=== PATIENT | female | born 1960 | race Two or more races ===

== ENCOUNTER 2019-12-05 13:39 | Inpatient (IN) | payer MEDICAID ==
[~2019-12-05] VITALS: Ht 160 cm; Wt 89.9 kg
[~2019-12-05 13:39] MED LIST: CLOP75TA41 PO; LAMO200T34 PO; TRAZ150T79 PO
[2019-12-05] MEDS ORDERED: methylPREDNISolone SOD SUCC 125 MG/2 ML VL IV ONE (14:00)
[2019-12-05] MEDS ORDERED: SODIUM CHLORIDE 0.9% 500 ML IV ONE (14:15)
[2019-12-05 14:37] LABS: Basophils # (auto) 0 10 ^3/uL (0-0.2); Basophils % (auto) 0.5 % (0.0-2.0); Eosinophils # (auto) 0.3 10 ^3/uL (0-0.8); Eosinophils % (auto) 3.5 % (0.0-7.0); Hemoglobin 14.3 g/dL (12.2-16.2); Lymphocytes # (auto) 2.7 10 ^3/uL (0.4-5.4); Lymphocytes % (auto) 31.8 % (10.0-50.0); Mean Corpuscular Hemoglobin 32.5 pg (28.0-32.0); Mean Corpuscular Volume 95.7 fL (80.0-100.0); Monocytes # (auto) 0.6 10 ^3/uL (0-1.3); Monocytes % (auto) 7.1 % (0.0-12.0); Neutrophils # (auto) 4.8 10 ^3/uL (1.6-8.6); Neutrophils % (auto) 57.1 % (37.0-80.0); Nucleated Red Blood Cells % 0.1 %; Platelet Count (auto) 278 10^3/uL (140-450); Red Blood Cells 4.39 10^6/uL (4.0-5.20); Red Cell Distribution Width 13.3 % (11.8-14.3); White Blood Cell 8.4 10^3/uL (4.4-10.8)
[2019-12-05 14:46] LABS: Albumin 3.4 g/dL (3.4-5.0); Anion Gap 8 (5-15); Blood Urea Nitrogen 11 mg/dL (7-18); Calcium 8.6 mg/dL (8.5-10.1); Carbon Dioxide 28 mmol/L (21-32); Chloride 97 mmol/L (98-107); Glucose 204 mg/dL (74-106); Magnesium 2.3 mg/dL (1.6-2.6); Potassium 3.9 mmol/L (3.5-5.1); Sodium 133 mmol/L (136-145)
[2019-12-05 14:54] LABS: Alanine Aminotransferase 30 U/L (13-56); Alkaline Phosphatase 86 U/L (45-117); Aspartate Aminotransferase 29 U/L (15-37); BUN/Creatinine Ratio 17.2; Bilirubin, Total 0.1 mg/dL (0.2-1.0); CRP High Sensitivity 1.41 mg/dL (< 0.3); GFR African American 122 mL/min; GFR Non-African American 101 mL/min; Total Protein 7.6 g/dL (6.4-8.2)
[2019-12-05 15:38] VITALS: BP 155/96
[2019-12-05] MEDS ORDERED: ACETAMINOPHEN 500 MG TAB PO PRN (17:45)
[2019-12-05] MEDS ORDERED: MORPHINE SULF INJ 2 MG/ML SYRINGE 1ML IV PRN (17:45)
[2019-12-05] MEDS ORDERED: NITROGLYCERIN 0.4 MG SL TAB SL PRN (17:45)
[2019-12-05] MEDS ORDERED: AZITHROMYCIN 500MG/ 250ML 250 ML IV ONE (18:00)
[2019-12-05] MEDS ORDERED: cefTRIAXone 1GM/50ML D5W 50 ML IV ONE (18:00)
[2019-12-05] MEDS: ASCORBIC ACID 1,000 MG TAB PO SCH (18:29)
[2019-12-05] MEDS: ZINC SULFATE 220mg CAP or TAB PO SCH (18:29)
[2019-12-05] MEDS: CHOLECALCIFEROL (VITD3) 1,000IU=25mCg TAB PO SCH (18:29)
[2019-12-05] MEDS ORDERED: DEXTROSE (50%) 50ML SYRG IV PRN (18:45)
--- NOTE | 2019-12-05 18:48 | NUR ---
Called Hospitalist to obtain diet order. Received cardiac diet order from DANY Aden. Per DANY Aden place patient on mild sliding scale to monitor glucose levels. Orders read back and verified, will carry out new orders.
--- NOTE | 2019-12-05 18:59 | NUR ---
Telemetry admit from ER STACEY CAVANAUGH admitted to Telemetry unit after SBAR received. Patient oriented to KATE RODRIGUEZ RN primary RN, unit, room, bed, and unit policies regarding patient care and visiting hours. Patient now on continuous telemetry monitoring, tele box # 4 and telemetry reading on arrival to unit is ST. Patient placed on bedside oxygen. All questions and concerns addressed, patient verbalized understanding. Report given to night PAYAL Macias.
[2019-12-05 19:10] VITALS: BP 145/97
--- NOTE | 2019-12-05 19:20 | NUR ---
Opening Shift Note Assumed care of patient, awake, alert and oriented x4, even and unlabored respirations on 2L oxygen via NC, no S/S of distress/SOB or pain. Patient able to ambulate and turn in bed independently, bed in lowest locked position, side rails up x2, call light within reach. Instructed on POC and to call for assist PRN, will continue to monitor for changes Q1hr and PRN.
[2019-12-05] MEDS ORDERED: ALBUTEROL SULF HFA 90MCG INH 200DOSE IN SCH (22:00)
[2019-12-05] MEDS ORDERED: TEMAZEPAM 15 MG CAP PO ONE (22:45)
[2019-12-05] MEDS: ACCU-CHEK COMFORT CURVE STRIP VI SCH (22:53)
[2019-12-05] MEDS: ALBUTEROL SULF HFA 90MCG INH 200DOSE IN SCH (22:53)
--- NOTE | 2019-12-05 22:53 | NUR ---
RT NOTE: MDI ADMINISTERED BY RN.
[2019-12-05] MEDS: InsuLIN REG 1unit/0.01ml Soln (100units/ml) SC SCH (22:54)
[2019-12-06] VITALS (7 sets, daily range): BP systolic 147–161; BP diastolic 85–96
[2019-12-06] MEDS ORDERED: LABETALOL HCL 5 MG/ML 4ML SYRINGE IV ONE (05:15)
[2019-12-06] MEDS: ALBUTEROL SULF HFA 90MCG INH 200DOSE IN SCH (05:54)
--- NOTE | 2019-12-06 05:54 | NUR ---
Respiratory note: MDI GIVEN BY RN , HR 91, RR 18, SPO2 96% ON 2L NC.
[2019-12-06] MEDS: InsuLIN REG 1unit/0.01ml Soln (100units/ml) SC SCH ×4 (06:36→22:06)
[2019-12-06] MEDS: ACCU-CHEK COMFORT CURVE STRIP VI SCH ×4 (06:36→22:04)
[2019-12-06 06:47] LABS: Basophils # (auto) 0.1 10 ^3/uL (0-0.2); Basophils % (auto) 0.6 % (0.0-2.0); Eosinophils # (auto) 0 10 ^3/uL (0-0.8); Eosinophils % (auto) 0.1 % (0.0-7.0); Hematocrit 42.8 % (36.0-46.0); Hemoglobin 14.3 g/dL (12.2-16.2); Lymphocytes # (auto) 3.6 10 ^3/uL (0.4-5.4); Lymphocytes % (auto) 28.7 % (10.0-50.0); Mean Corpuscular Hemoglobin 32.4 pg (28.0-32.0); Mean Corpuscular Hgb Conc. 33.4 g/dL (32.0-36.0); Monocytes # (auto) 0.9 10 ^3/uL (0-1.3); Monocytes % (auto) 7.1 % (0.0-12.0); Neutrophils # (auto) 7.9 10 ^3/uL (1.6-8.6); Neutrophils % (auto) 63.5 % (37.0-80.0); Nucleated Red Blood Cells % 0.1 %; Platelet Count (auto) 312 10^3/uL (140-450); Red Blood Cells 4.41 10^6/uL (4.0-5.20); Red Cell Distribution Width 13.8 % (11.8-14.3); White Blood Cell 12.4 10^3/uL (4.4-10.8)
[2019-12-06 07:06] LABS: Albumin 3.4 g/dL (3.4-5.0); Anion Gap 8 (5-15); Blood Urea Nitrogen 11 mg/dL (7-18); Calcium 8.8 mg/dL (8.5-10.1); Carbon Dioxide 27 mmol/L (21-32); Chloride 100 mmol/L (98-107); Potassium 4.3 mmol/L (3.5-5.1); Sodium 135 mmol/L (136-145)
[2019-12-06 07:14] LABS: Alanine Aminotransferase 34 U/L (13-56); Alkaline Phosphatase 88 U/L (45-117); Aspartate Aminotransferase 25 U/L (15-37); BUN/Creatinine Ratio 18.6; Bilirubin, Total 0.2 mg/dL (0.2-1.0); GFR African American 134 mL/min; GFR Non-African American 111 mL/min; Glucose 136 mg/dL (74-106); Total Protein 7.7 g/dL (6.4-8.2)
--- NOTE | 2019-12-06 07:30 | NUR ---
Opening Shift Note Assumed care of patient, awake and alert. No S/S of distress/SOB or pain. Instructed on POC and to call for assist PRN, will continue to monitor for changes Q1hr and PRN. Fall precautions in place per safety protocol.
--- NOTE | 2019-12-06 09:14 | NUR ---
IV insertion IV access obtained, via clean sterile technique by inserting a 20 gauge catheter at right forearm after 3 attempts. IV secured properly. No trauma to site. Patient tolerated procedure well.
[2019-12-06] MEDS: ZINC SULFATE 220mg CAP or TAB PO SCH (09:20)
[2019-12-06] MEDS: cefTRIAXone 1GM/50ML D5W 50 ML IV SCH (09:20)
[2019-12-06] MEDS: CHOLECALCIFEROL (VITD3) 1,000IU=25mCg TAB PO SCH (09:21)
[2019-12-06] MEDS: ASCORBIC ACID 1,000 MG TAB PO SCH (09:21)
[2019-12-06] MEDS: AZITHROMYCIN 250 MG TAB PO SCH (09:21)
[2019-12-06] MEDS: ENOXAPARIN SOD 40 MG/0.4 ML SYRINGE SC SCH (09:22)
[2019-12-06] MEDS ORDERED: AZITHROMYCIN 500MG/ 250ML 250 ML IV SCH (10:00)
--- NOTE | 2019-12-06 10:10 | NUR ---
Paged MD Denson regarding BP 160/88. Awaiting call back at this time. Will cont to monitor patient.
--- NOTE | 2019-12-06 10:48 | NUR ---
Paged MD Denson again regarding BP. Awaiting call back at this time. Will cont to monitor patient.
[2019-12-06] MEDS ORDERED: PRAZ1CAP48 PO (11:54)
[2019-12-06] MEDS ORDERED: QUET400T12 PO (11:54)
[2019-12-06] MEDS ORDERED: DIVA500T13 PO (11:54)
[2019-12-06] MEDS ORDERED: LEVE100012 PO (11:54)
[2019-12-06] MEDS ORDERED: METF-370 PO (11:54)
[2019-12-06] MEDS ORDERED: OXCA600T3 PO (11:54)
[2019-12-06] MEDS ORDERED: CLOP75TA41 PO (11:54)
[2019-12-06] MEDS ORDERED: LOSA25TA38 PO (11:54)
--- NOTE | 2019-12-06 12:14 | NUR ---
Third page to MD Denson regarding BP. Awaiting call back at this time. Will cont to monitor patient.
--- NOTE | 2019-12-06 12:45 | NUR ---
Patient's Covid Results are Negative. Patient will be transferred to room 223A with PAYAL Benedict. Report endorsed.
--- NOTE | 2019-12-06 13:03 | NUR ---
Patient transferred to room 223A. No distress, sob, or pain noted at time of departure.
[2019-12-06] MEDS ORDERED: hydrALAZINE HCL 20 MG/ML VL IV PRN (13:15)
--- NOTE | 2019-12-06 13:15 | NUR ---
Patient arrived to room 223A. Report received from PAYAL Dash. No distress/SOB or pain noted or reported. Patient is awake and alert sitting up in bed. Bed locked in lowest position, side rails up x2, call light within reach. Will continue to monitor q1hr and PRN.
[2019-12-06] MEDS ORDERED: ALBUTEROL SULF 2.5 MG/0.5ML(0.5%) NEB SOLN NEB PRN (13:30)
[2019-12-06] MEDS ORDERED: IPRATROPIUM BROM 0.5 MG/2.5ML INH SOL NEB PRN (13:30)
[2019-12-06] MEDS ORDERED: LOSARTAN POTASSIUM 25 MG TAB PO ONE (13:30)
[2019-12-06 18:38] LABS: Urine Bacteria FEW /hpf (None Seen); Urine Blood Negative /uL (Negative); Urine Specific Gravity 1.009 (1.001-1.035); Urine WBC None Seen /hpf (0 - 5)
--- NOTE | 2019-12-06 18:38 | NUR ---
Respiratory note: PT RECIEVED ON RA. PT IS AWAKE AND ALERT. PT SITTING UP ON BEDSIDE. NO RESP DISTRESS NOTED. SPO2 93%, HR 76, RR 20, BS DIM. PRN TX NOT INDICATED AT THIS TIME. PT AWARE TO CALL FOR PRN TX IF SOB/WHEEZING. WILL CONTINUE TO MONITOR PT T/O SHIFT.
--- NOTE | 2019-12-06 18:44 | NUR ---
PATIENT ROUNDS PATIENT SITTING UP AT THE SIDE OF BED EATING DINNER. NO S/S OF DISTRESS/SOB, NO PAIN NOTED OR REPORTED. WILL ENDORSE CARE TO BUSGIRL RN.
[2019-12-07 05:00] VITALS: BP 137/78
[2019-12-07 05:30] LABS: Basophils # (auto) 0.1 10 ^3/uL (0-0.2); Basophils % (auto) 1.2 % (0.0-2.0); Eosinophils # (auto) 0.1 10 ^3/uL (0-0.8); Eosinophils % (auto) 1.1 % (0.0-7.0); Hematocrit 41.7 % (36.0-46.0); Hemoglobin 14.3 g/dL (12.2-16.2); Lymphocytes % (auto) 36.5 % (10.0-50.0); Mean Corpuscular Hgb Conc. 34.3 g/dL (32.0-36.0); Mean Corpuscular Volume 96.2 fL (80.0-100.0); Monocytes # (auto) 0.9 10 ^3/uL (0-1.3); Neutrophils # (auto) 5.8 10 ^3/uL (1.6-8.6); Neutrophils % (auto) 53.2 % (37.0-80.0); Nucleated Red Blood Cells % 0.1 %; Platelet Count (auto) 314 10^3/uL (140-450); Red Blood Cells 4.34 10^6/uL (4.0-5.20); Red Cell Distribution Width 13.3 % (11.8-14.3); White Blood Cell 10.8 10^3/uL (4.4-10.8)
[2019-12-07] MEDS: ACCU-CHEK COMFORT CURVE STRIP VI SCH ×3 (05:48→17:00)
[2019-12-07 05:53] LABS: Calcium 8.8 mg/dL (8.5-10.1); Magnesium 2.3 mg/dL (1.6-2.6); Potassium 3.9 mmol/L (3.5-5.1)
[2019-12-07 05:58] LABS: BUN/Creatinine Ratio 25.5
--- NOTE | 2019-12-07 06:17 | NUR ---
Respiratory note: PT ASSESSED FOR PRN TX. HR 81, RR 18, POX 94% ON 2L NC, BS ARE CLR/DIM. PT NOTIFY TO HAVE RT PAGED.
[2019-12-07] MEDS: InsuLIN REG 1unit/0.01ml Soln (100units/ml) SC SCH ×3 (06:26→17:00)
--- NOTE | 2019-12-07 08:15 | NUR ---
Opening Shift Note Assumed care of patient, awake, alert, and oriented. No S/S of distress/SOB or pain. Bed in lowest/locked position, bed rails up x2, call light within reach. Instructed on POC and to call for assist PRN. Will continue to monitor for changes Q1hr and PRN.
[2019-12-07 09:00] VITALS: BP 142/77
[2019-12-07] MEDS: AZITHROMYCIN 250 MG TAB PO SCH (09:46)
[2019-12-07] MEDS: cefTRIAXone 1GM/50ML D5W 50 ML IV SCH (09:46)
[2019-12-07] MEDS: ENOXAPARIN SOD 40 MG/0.4 ML SYRINGE SC SCH (09:47)
[2019-12-07] MEDS ORDERED: LOSARTAN POTASSIUM 25 MG TAB PO SCH (10:00)
[2019-12-07] MEDS ORDERED: ASCORBIC ACID 1,000 MG TAB PO SCH (10:00)
[2019-12-07] MEDS ORDERED: AZIT500T PO (10:35)
--- NOTE | 2019-12-07 11:05 | NUR ---
MD ROUNDS DR HUGHES AT BEDSIDE DISCUSSING POC WITH PATIENT. NEW ORDERS RECEIVED/WILL CARRY OUT. WILL CONTINUE TO MONITOR
[2019-12-07 12:30] VITALS: BP 141/82
--- NOTE | 2019-12-07 17:45 | NUR ---
Discharge instructions given as ordered. Encourage to follow up with PMD as instructed. All questions and concerns addressed. Patient verbalized understanding. IV removed with catheter intact, pressure dressing applied. Telemetry unit returned to ICU. Patient taken to vehicle via wheelchair with all personal belongings, accompanied by staff and family member. No distress noted at time of departure.
== END 2019-12-07 17:30 | disposition home or self-care (01) | DRG 133 ==
LOC: ER 13:39 → UNDOADMIN 13:40 → TELE-EAST 13:40 → TELE 13:40 → TELE-CENTR 12-06 13:02
PROVIDERS: ADMIT Nurse Practitioner Acute Care; ATTEND Internal Medicine
DX: J96.00 Acute respiratory failure, unspecified whether with hypoxia or hypercapnia (principal); J45.902 Unspecified asthma with status asthmaticus; R65.10 Systemic inflammatory response syndrome (SIRS) of non-infectious origin without acute organ dysfunction; E11.65 Type 2 diabetes mellitus with hyperglycemia; J98.11 Atelectasis; E66.9 Obesity, unspecified; E78.5 Hyperlipidemia, unspecified; G40.909 Epilepsy, unspecified, not intractable, without status epilepticus; I10 Essential (primary) hypertension; I25.10 Atherosclerotic heart disease of native coronary artery without angina pectoris; J20.9 Acute bronchitis, unspecified; Z68.35 Body mass index [BMI] 35.0-35.9, adult; I25.2 Old myocardial infarction; Z79.899 Other long term (current) drug therapy; Z79.02 Long term (current) use of antithrombotics/antiplatelets; Z82.49 Family history of ischemic heart disease and other diseases of the circulatory system; Z83.3 Family history of diabetes mellitus; Z95.5 Presence of coronary angioplasty implant and graft; Z03.818 Encounter for observation for suspected exposure to other biological agents ruled out
CPT/HCPCS: 36415; 71045; 71046; 80048; 80053; 80061; 81001; 82728; 82962; 83036; 83605; 83615; 83735; 83880; 84443; 84484; 85025; 85379; 86141; 87040; 87070; 87804; 87880; 93005; 94640; 96361; 96365; 96368; 96375; G0378; J0696; J1815; J3490

== ENCOUNTER 2024-02-01 01:16 | Inpatient (IN) | payer MEDICAID ==
[~2024-02-01] VITALS: Ht 160 cm; Wt 78.8 kg
[~2024-02-01 01:16] MED LIST changes: +AZIT500T PO; -CLOP75TA41 PO; +CLOP75TA70 PO; +DIVA500T13 PO; +LEVE100012 PO; +LOSA-533 PO; +METF-370 PO; +OXCA600T3 PO; +PRAZ1CAP48 PO; +QUET400T13 PO; -TRAZ150T79 PO; +TRAZ1TAB12 PO
[2024-02-01] MEDS: LORazepam 2MG/ML-1ML VIAL IV ONE (02:10)
[2024-02-01] MEDS: levETIRAcetam 1000 mg/100ml 100 ML IV ONE (02:10)
[2024-02-01 02:32] VITALS: PULSE 66; RESP 14; O2SAT 90
[2024-02-01 03:08] LABS: Basophils # (auto) 0.1 10 ^3/uL (0-0.2); Basophils % (auto) 0.9 % (0.0-2.0); Eosinophils # (auto) 0.1 10 ^3/uL (0-0.8); Hematocrit 36.4 % (36.0-46.0); Hemoglobin 12.8 g/dL (12.2-16.2); Lymphocytes # (auto) 2.9 10 ^3/uL (0.4-5.4); Lymphocytes % (auto) 45.9 % (10.0-50.0); Mean Corpuscular Hemoglobin 32.9 pg (28.0-32.0); Monocytes # (auto) 0.4 10 ^3/uL (0-1.3); Monocytes % (auto) 6.3 % (0.0-12.0); Neutrophils # (auto) 2.9 10 ^3/uL (1.6-8.6); Neutrophils % (auto) 45.9 % (37.0-80.0); Nucleated Red Blood Cells % 0.1 %; Red Blood Cells 3.88 10^6/uL (4.0-5.20); Red Cell Distribution Width 13.1 % (11.8-14.3); White Blood Cell 6.3 10^3/uL (4.4-10.8)
[2024-02-01 03:32] LABS: Chloride 102 mmol/L (98-107); Potassium 3.1 mmol/L (3.5-5.1); Sodium 133 mmol/L (136-145)
[2024-02-01 03:33] LABS: Anion Gap 6 (5-15); Calcium 9.7 mg/dL (8.7-10.4); Carbon Dioxide 25 mmol/L (20-30)
[2024-02-01 03:38] LABS: BUN/Creatinine Ratio 15.2 (10.0-20.0); Blood Urea Nitrogen 7 mg/dL (9-23); Glucose 133 mg/dL (74-106)
[2024-02-01] MEDS: POTASSIUM CHL 20MEQ/100ML 100 ML IV ONE (05:04)
[2024-02-01] MEDS: SODIUM CHLORIDE 0.9% 1,000 ML IV ONE (05:04)
[2024-02-01 05:43] LABS: Urine Bacteria None Seen /hpf (None Seen)
[2024-02-01 05:53] LABS: Urine Blood Negative /uL (Negative); Urine Clarity Clear (Clear); Urine Color Colorless (Yellow); Urine Protein, UAD Negative (Negative); Urine Urobilinogen Normal (Negative); Urine WBC <1 /hpf (0 - 5); Urine pH 6.5 (5.0-9.0)
[2024-02-01] MEDS ORDERED: MORPHINE SULFATE INJ 2 MG/ml SYRG IV PRN (06:15)
[2024-02-01] MEDS ORDERED: NITROGLYCERIN 0.4 MG SL TAB SL PRN (06:15)
[2024-02-01] MEDS: CLOPIDOGREL BISULFATE 75 MG TAB PO SCH (08:32)
[2024-02-01] MEDS: LOSARTAN POTASSIUM 50 MG TAB PO SCH (08:35)
[2024-02-01] MEDS: lamoTRIgine 100 MG TAB PO SCH (08:35)
[2024-02-01] MEDS: OXcarbazepine 300 MG TAB PO SCH (08:36)
[2024-02-01 10:09] VITALS: PULSE 73; RESP 20; O2SAT 94
[2024-02-01 13:39] LABS: Albumin 4.2 g/dL (3.2-4.8); Alkaline Phosphatase 77 U/L (46-116); Anion Gap 3 (5-15); Aspartate Aminotransferase 9 U/L (13-40); Bilirubin, Total 0.2 mg/dL (0.2-1.0); Carbon Dioxide 29 mmol/L (20-30); Chloride 107 mmol/L (98-107); Creatine Kinase IFCC 53 U/L (34-145); Glucose 87 mg/dL (74-106); Magnesium 1.9 mg/dL (1.6-2.6); Potassium 3.9 mmol/L (3.5-5.1); Sodium 139 mmol/L (136-145); Total Protein 6.6 g/dL (5.7-8.2)
[2024-02-01 13:42] LABS: Alanine Aminotransferase < 9 U/L (7-40); BUN/Creatinine Ratio 11.6 (10.0-20.0); Blood Urea Nitrogen < 5 mg/dL (9-23)
[2024-02-01] MEDS: levETIRAcetam 500 MG TAB PO SCH (14:21)
[2024-02-01] MEDS: HYDROcodone-ACET 5/325MG TAB ONE (15:07)
[2024-02-01 19:30] VITALS: PULSE 87; RESP 20; O2SAT 96
[2024-02-01] MEDS: ACETAMINOPHEN 325 MG TAB PO PRN (20:38)
[2024-02-01] MEDS: ATORVASTATIN 20 MG TAB PO SCH (21:57)
[2024-02-01] MEDS: HYDROcodone-ACET 5/325MG TAB PO PRN (22:17)
[2024-02-01 22:30] VITALS: PULSE 76; RESP 19; O2SAT 95
[2024-02-02] VITALS (8 sets, daily range): BP systolic 114–145; BP diastolic 61–86; PULSE 73–92; RESP 14–20; TEMP 97.9–98.3; O2SAT 92–97
[2024-02-02] MEDS ORDERED: LIDO1PAD55 TOP (02:35)
[2024-02-02] MEDS ORDERED: BUSP30TA PO (02:35)
[2024-02-02] MEDS ORDERED: NITR0.4S29 (02:37)
[2024-02-02 06:32] LABS: Anion Gap 5 (5-15); Carbon Dioxide 29 mmol/L (20-30); Chloride 101 mmol/L (98-107); Potassium 3.9 mmol/L (3.5-5.1); Sodium 135 mmol/L (136-145)
[2024-02-02 06:34] LABS: Calcium 9.2 mg/dL (8.7-10.4)
[2024-02-02 06:38] LABS: BUN/Creatinine Ratio 9.3 (10.0-20.0); Blood Urea Nitrogen < 5 mg/dL (9-23); Glucose 84 mg/dL (74-106)
[2024-02-03] VITALS (8 sets, daily range): BP systolic 114–156; BP diastolic 45–82; PULSE 75–97; RESP 16–18; TEMP 97.7–98.3; O2SAT 90–96
[2024-02-03] MEDS: ONDANSETRON HCL 4 MG/2 ML VIAL IV PRN (06:44)
[2024-02-03] MEDS: LORazepam 2MG/ML-1ML VIAL IV ONE (10:45)
[2024-02-04] VITALS (7 sets, daily range): BP systolic 118–152; BP diastolic 65–76; PULSE 67–97; RESP 18–19; TEMP 97.4–98.4; O2SAT 91–98
[2024-02-04] MEDS: LORazepam 2MG/ML-1ML VIAL IV PRN (03:21)
[2024-02-04 06:39] LABS: Basophils # (auto) 0 10 ^3/uL (0-0.2); Basophils % (auto) 0.5 % (0.0-2.0); Eosinophils # (auto) 0 10 ^3/uL (0-0.8); Eosinophils % (auto) 0.1 % (0.0-7.0); Hematocrit 37.4 % (36.0-46.0); Hemoglobin 13.1 g/dL (12.2-16.2); Lymphocytes # (auto) 2.2 10 ^3/uL (0.4-5.4); Lymphocytes % (auto) 29.5 % (10.0-50.0); Mean Corpuscular Hemoglobin 32.7 pg (28.0-32.0); Mean Corpuscular Hgb Conc. 34.9 g/dL (32.0-36.0); Mean Corpuscular Volume 93.6 fL (80.0-100.0); Monocytes # (auto) 0.3 10 ^3/uL (0-1.3); Monocytes % (auto) 3.5 % (0.0-12.0); Neutrophils # (auto) 4.9 10 ^3/uL (1.6-8.6); Neutrophils % (auto) 66.4 % (37.0-80.0); Nucleated Red Blood Cells % 0.1 %; Red Cell Distribution Width 13.3 % (11.8-14.3); White Blood Cell 7.3 10^3/uL (4.4-10.8)
[2024-02-04 07:02] LABS: Chloride 100 mmol/L (98-107); Potassium 3.9 mmol/L (3.5-5.1); Sodium 132 mmol/L (136-145)
[2024-02-04 07:03] LABS: Anion Gap 5 (5-15); Carbon Dioxide 27 mmol/L (20-30)
[2024-02-04 07:04] LABS: Calcium 9.2 mg/dL (8.5-10.1)
[2024-02-04 07:09] LABS: BUN/Creatinine Ratio 20.8 (10.0-20.0); Blood Urea Nitrogen 11 mg/dL (9-23); Glucose 95 mg/dL (74-106)
[2024-02-04] MEDS ORDERED: traZODone HCL 50 MG TAB PO ONE (13:45)
[2024-02-04 16:48] LABS: Chloride 100 mmol/L (98-107); Potassium 3.1 mmol/L (3.5-5.1); Sodium 135 mmol/L (136-145)
[2024-02-04 16:49] LABS: Anion Gap 8 (5-15); Calcium 9.4 mg/dL (8.5-10.1); Carbon Dioxide 27 mmol/L (20-30)
[2024-02-04 16:54] LABS: BUN/Creatinine Ratio 24.5 (10.0-20.0); Blood Urea Nitrogen 13 mg/dL (9-23); Glucose 93 mg/dL (74-106)
[2024-02-04] MEDS: CLOPIDOGREL BISULFATE 75 MG TAB PO ONE (17:13)
[2024-02-04] MEDS: VENLAFAXINE HCL 37.5mg XR cap PO ONE (17:13)
[2024-02-04] MEDS: busPIRone HCL 10 MG TAB PO SCH (17:14)
[2024-02-04] MEDS ORDERED: hydrALAZINE HCL 20 MG/ML VL IV PRN (18:00)
[2024-02-04] MEDS: POTASSIUM EFFERVESENT TAB 25 MEQ PO ONE (20:38)
[2024-02-04] MEDS: traZODone HCL 50 MG TAB PO SCH (21:54)
[2024-02-05] VITALS (7 sets, daily range): BP systolic 127–150; BP diastolic 60–89; PULSE 79–92; RESP 18–20; TEMP 97.7–99.1; O2SAT 90–98
[2024-02-05] MEDS: VENLAFAXINE HCL 37.5mg XR cap PO SCH (10:33)
[2024-02-05] MEDS: CLOPIDOGREL BISULFATE 75 MG TAB PO SCH (10:34)
[2024-02-05] MEDS: GADOTERATE MEG 10 MMOL/20ml INJ (0.5MMOL/ml) IV ONE (14:40)
[2024-02-06 01:00] VITALS: BP 121/72; PULSE 83; RESP 18; TEMP 97; O2SAT 91
[2024-02-06 05:00] VITALS: BP 125/61; PULSE 78; RESP 18; TEMP 98.7; O2SAT 94
[2024-02-06 08:00] VITALS: RESP 18; O2SAT 99
[2024-02-06 08:58] VITALS: BP 112/65; PULSE 75; RESP 18; TEMP 98.1; O2SAT 93
[2024-02-06] MEDS: POTASSIUM EFFERVESENT TAB 25 MEQ PO ONE (10:07)
[2024-02-06 10:49] VITALS: BP 112/65
[2024-02-06 12:50] VITALS: BP 143/71; PULSE 87; RESP 18; TEMP 98.1; O2SAT 93
== END 2024-02-06 14:05 | disposition home or self-care (01) | DRG 53 ==
LOC: ER 01:16 → TELE 06:18 → TELE-WESTW 02-02 00:42 → WEST WING 02-02 17:13
PROVIDERS: ADMIT Internal Medicine; ATTEND Internal Medicine
DX: G40.901 Epilepsy, unspecified, not intractable, with status epilepticus (principal); D32.0 Benign neoplasm of cerebral meninges; E11.9 Type 2 diabetes mellitus without complications; I25.10 Atherosclerotic heart disease of native coronary artery without angina pectoris; I10 Essential (primary) hypertension; E78.5 Hyperlipidemia, unspecified; J45.909 Unspecified asthma, uncomplicated; E87.6 Hypokalemia; F41.9 Anxiety disorder, unspecified; F32.A Depression, unspecified; T50.995A Adverse effect of other drugs, medicaments and biological substances, initial encounter; I25.2 Old myocardial infarction; Z90.49 Acquired absence of other specified parts of digestive tract; Z98.51 Tubal ligation status; Z82.49 Family history of ischemic heart disease and other diseases of the circulatory system; Z87.891 Personal history of nicotine dependence; Z83.3 Family history of diabetes mellitus; Y92.89 Other specified places as the place of occurrence of the external cause; Z95.5 Presence of coronary angioplasty implant and graft; D32.9 Benign neoplasm of meninges, unspecified
CPT/HCPCS: 36415; 70450; 70551; 70553; 80048; 80053; 81001; 82550; 82553; 82962; 83605; 83735; 84443; 85025; 87081; 93005; 96361; 96365; 96375; G0378; J2405; J3480

== ENCOUNTER 2024-02-09 00:07 | Inpatient (IN) | payer MEDICAID ==
[~2024-02-09] VITALS: Ht 167.6 cm; Wt 80.8 kg
[2024-02-09] VITALS (9 sets, daily range): BP systolic 119–135; BP diastolic 62–71; PULSE 64–85; RESP 12–19; TEMP 96.5–98.2; O2SAT 92–97
[~2024-02-09 00:07] MED LIST changes: -AZIT500T PO; +BUSP30TA PO; -LAMO200T34 PO; +LIDO1PAD55 TOP; +NITR0.4S29
[2024-02-09] MEDS: SODIUM CHLORIDE 0.9% 1,000 ML IVB ONE (00:51)
[2024-02-09 01:03] LABS: Basophils # (auto) 0.1 10 ^3/uL (0-0.2); Basophils % (auto) 0.7 % (0.0-2.0); Eosinophils # (auto) 0.1 10 ^3/uL (0-0.8); Eosinophils % (auto) 0.7 % (0.0-7.0); Hemoglobin 12.3 g/dL (12.2-16.2); Lymphocytes % (auto) 38.6 % (10.0-50.0); Mean Corpuscular Hemoglobin 32.4 pg (28.0-32.0); Mean Corpuscular Hgb Conc. 34.3 g/dL (32.0-36.0); Mean Corpuscular Volume 94.5 fL (80.0-100.0); Monocytes # (auto) 0.6 10 ^3/uL (0-1.3); Monocytes % (auto) 7.7 % (0.0-12.0); Neutrophils % (auto) 52.3 % (37.0-80.0); Red Blood Cells 3.81 10^6/uL (4.0-5.20); Red Cell Distribution Width 13.7 % (11.8-14.3); White Blood Cell 7.7 10^3/uL (4.4-10.8)
[2024-02-09 01:13] LABS: Alanine Aminotransferase 10 U/L (7-40); Albumin 3.9 g/dL (3.2-4.8); Alkaline Phosphatase 66 U/L (46-116); Anion Gap 6 (5-15); Aspartate Aminotransferase 30 U/L (13-40); BUN/Creatinine Ratio 31.1 (10.0-20.0); Bilirubin, Total 0.2 mg/dL (0.2-1.0); Blood Urea Nitrogen 23 mg/dL (9-23); Calcium 9.2 mg/dL (8.7-10.4); Carbon Dioxide 27 mmol/L (20-30); Chloride 105 mmol/L (98-107); Glucose 93 mg/dL (74-106); Magnesium 2.1 mg/dL (1.6-2.6); Potassium 3.3 mmol/L (3.5-5.1); Sodium 138 mmol/L (136-145); Total Protein 6.3 g/dL (5.7-8.2)
[2024-02-09 01:54] LABS: Urine Bacteria None Seen /hpf (None Seen)
[2024-02-09 02:03] LABS: Urine Blood Negative /uL (Negative); Urine Clarity Clear (Clear); Urine Color Yellow (Yellow); Urine Hyaline Cast MANY /lpf (0 - 2); Urine Mucus FEW (None Seen); Urine Protein, UAD TRACE (Negative); Urine Specific Gravity 1.029 (1.001-1.035); Urine Urobilinogen Normal (Negative); Urine WBC 4 /hpf (0 - 5); Urine pH 5.5 (5.0-9.0)
[2024-02-09 03:18] LABS: Amphetamine Screen, Urine Neg (NEGATIVE); Barbiturate Scree,Urine Neg (NEGATIVE); Benzodiazephine Screen, Urine Neg (NEGATIVE); Cannabinoid Screen, Urine Neg (NEGATIVE); Cocaine Screen, Urine Neg (NEGATIVE); Opiate Scree,Urine Neg (NEGATIVE); Phencyclidine Screen, Urine Neg (NEGATIVE)
[2024-02-09] MEDS ORDERED: ONDANSETRON HCL 4 MG/2 ML VIAL IV PRN (03:45)
[2024-02-09] MEDS ORDERED: NITROGLYCERIN 0.4 MG SL TAB SL PRN (03:45)
[2024-02-09] MEDS ORDERED: DEXTROSE (50%) 50ML SYRG IV PRN (03:45)
[2024-02-09] MEDS: POTASSIUM CHLORIDE 20 MEQ, LIDOCAINE 1% (LOCAL ANESTH.) 2 ML in SODIUM CHL 0.9% 100 ML IV ONE (03:45)
[2024-02-09] MEDS ORDERED: MORPHINE SULFATE INJ 2 MG/ml SYRG IV PRN (03:45)
[2024-02-09] MEDS: InsuLIN REG 1unit/0.01ml Soln (100units/ml) SC SCH (06:27)
[2024-02-09] MEDS: levETIRAcetam 500 MG TAB PO SCH (06:27)
[2024-02-09] MEDS: ACCU-CHEK COMFORT CURVE STRIP VI SCH (06:27)
[2024-02-09] MEDS ORDERED: CLOPIDOGREL BISULFATE 75 MG TAB PO SCH (10:00)
[2024-02-09 12:08] LABS: CRP High Sensitivity 4.62 mg/dL (<1.0); Erythrocyte Sedimentation Rate 32 mm/hr (0-20)
[2024-02-09] MEDS: POTASSIUM EFFERVESENT TAB 25 MEQ PO ONE (13:23)
[2024-02-09] MEDS: CLOPIDOGREL BISULFATE 75 MG TAB PO SCH (13:24)
[2024-02-09] MEDS: OXcarbazepine 300 MG TAB PO SCH (13:24)
[2024-02-09 13:42] LABS: Base Excess 3.4 mmol/L (-2.0-2.0)
[2024-02-09] MEDS ORDERED: VENL1TAB97 PO (15:16)
[2024-02-09] MEDS ORDERED: [UNRECOGNIZED DRUG - CODE] IV (15:16)
[2024-02-09 16:24] LABS: Folate (Folic Acid) 16.3 ng/mL (>5.38)
[2024-02-09] MEDS ORDERED: Ensure HIGH Protein Chocolate 8oz Bottle PO SCH (18:00)
[2024-02-09] MEDS: Glucerna Carbsteady SHAKE Vanilla 8oz PO SCH (19:05)
[2024-02-10] VITALS (7 sets, daily range): BP systolic 134–145; BP diastolic 62–85; PULSE 68–95; RESP 16–20; TEMP 97.5–98.3; O2SAT 90–97
[2024-02-10 08:06] LABS: RPR Non Reactive (Non Reactive)
[2024-02-10 08:43] LABS: Basophils # (auto) 0 10 ^3/uL (0-0.2); Basophils % (auto) 0.7 % (0.0-2.0); Eosinophils # (auto) 0.1 10 ^3/uL (0-0.8); Eosinophils % (auto) 1.5 % (0.0-7.0); Hematocrit 38.1 % (36.0-46.0); Hemoglobin 13.2 g/dL (12.2-16.2); Lymphocytes # (auto) 2.5 10 ^3/uL (0.4-5.4); Lymphocytes % (auto) 33.4 % (10.0-50.0); Mean Corpuscular Hemoglobin 32.7 pg (28.0-32.0); Mean Corpuscular Hgb Conc. 34.7 g/dL (32.0-36.0); Monocytes # (auto) 0.6 10 ^3/uL (0-1.3); Monocytes % (auto) 7.7 % (0.0-12.0); Neutrophils # (auto) 4.2 10 ^3/uL (1.6-8.6); Neutrophils % (auto) 56.7 % (37.0-80.0); Red Blood Cells 4.06 10^6/uL (4.0-5.20); Red Cell Distribution Width 13.4 % (11.8-14.3); White Blood Cell 7.4 10^3/uL (4.4-10.8)
[2024-02-10 09:02] LABS: Alanine Aminotransferase 10 U/L (7-40); Albumin 4.3 g/dL (3.2-4.8); Alkaline Phosphatase 73 U/L (46-116); Anion Gap 5 (5-15); Aspartate Aminotransferase 21 U/L (13-40); Bilirubin, Total 0.3 mg/dL (0.2-1.0); Blood Urea Nitrogen 12 mg/dL (9-23); Calcium 9.7 mg/dL (8.5-10.1); Carbon Dioxide 33 mmol/L (20-30); Chloride 98 mmol/L (98-107); Glucose 77 mg/dL (74-106); Magnesium 1.9 mg/dL (1.6-2.6); Potassium 3.7 mmol/L (3.5-5.1); Sodium 136 mmol/L (136-145)
[2024-02-10 09:03] LABS: Total Protein 6.7 g/dL (5.7-8.2)
[2024-02-10] MEDS: busPIRone HCL 10 MG TAB PO SCH (09:55)
[2024-02-10] MEDS ORDERED: VENLAFAXINE HCL 37.5MG TABLET PO SCH (10:00)
[2024-02-10 10:32] LABS: Anti-Nuclear Antibody Direct Positive (Negative)
[2024-02-10 12:06] LABS: Anti-dsDNA Antibody 1 IU/mL (0-9); RNP Antibody <0.2 AI (0.0-0.9); Sjogren's Anti-SS-A Antibody >8.0 AI (0.0-0.9); Sjogren's Anti-SS-B Antibody <0.2 AI (0.0-0.9); Smith Antibody <0.2 AI (0.0-0.9)
[2024-02-10] MEDS ORDERED: traZODone HCL 50 MG TAB PO SCH (18:00)
== END 2024-02-10 19:00 | disposition home or self-care (01) | DRG 53 ==
LOC: ER 00:07 → EDBD 00:07 → TELE 03:51 → TELE-EAST 05:48 → EAST 02-10 09:04
PROVIDERS: ADMIT Internal Medicine Pulmonary Disease; ATTEND Internal Medicine Pulmonary Disease
DX: G40.909 Epilepsy, unspecified, not intractable, without status epilepticus (principal); I95.9 Hypotension, unspecified; D18.09 Hemangioma of other sites; E11.9 Type 2 diabetes mellitus without complications; E87.6 Hypokalemia; D32.9 Benign neoplasm of meninges, unspecified; F41.9 Anxiety disorder, unspecified; F32.A Depression, unspecified; I10 Essential (primary) hypertension; I25.10 Atherosclerotic heart disease of native coronary artery without angina pectoris; E78.5 Hyperlipidemia, unspecified; J45.909 Unspecified asthma, uncomplicated; G47.00 Insomnia, unspecified; F39 Unspecified mood [affective] disorder; Z86.73 Personal history of transient ischemic attack (TIA), and cerebral infarction without residual deficits; Z79.899 Other long term (current) drug therapy
CPT/HCPCS: 36415; 36600; 70450; 71045; 72141; 72146; 72148; 80053; 80061; 80307; 81001; 82024; 82140; 82306; 82533; 82607; 82746; 82805; 82962; 83036; 83605; 83735; 84443; 85025; 85652; 86038; 86141; 86592; 87040; 87081; 93005; 93886; 96361; 96365; 97163; 99291; G0378; J2001; J2405